=== PATIENT | female | born 1965 | race Caucasian/White ===

== ENCOUNTER → 2021-10-29 | Outpatient (CLI) | payer BC | LOC: KOH-I 14:33 | DX: M79.671 Pain in right foot (principal); M25.774 Osteophyte, right foot | CPT/HCPCS: 73630 ==

== ENCOUNTER → 2021-12-01 | Outpatient (CLI) | payer BC | LOC: KOH-I 08:48 | DX: S92.331D Displaced fracture of third metatarsal bone, right foot, subsequent encounter for fracture with routine healing (principal); X58.XXXD Exposure to other specified factors, subsequent encounter | CPT/HCPCS: 73630 ==

== ENCOUNTER → 2021-12-15 | Outpatient (CLI) | payer BC | LOC: KOH-I 15:33 | DX: S92.331A Displaced fracture of third metatarsal bone, right foot, initial encounter for closed fracture (principal) | CPT/HCPCS: 73630 ==

== ENCOUNTER → 2022-01-04 | Outpatient (CLI) | payer BC | LOC: KOH-I 08:28 | DX: S92.331A Displaced fracture of third metatarsal bone, right foot, initial encounter for closed fracture (principal); X58.XXXA Exposure to other specified factors, initial encounter | CPT/HCPCS: 73630 ==

== ENCOUNTER → 2022-02-08 | Outpatient (CLI) | payer BC | LOC: KOH-I 12:55 | DX: S92.331D Displaced fracture of third metatarsal bone, right foot, subsequent encounter for fracture with routine healing (principal) | CPT/HCPCS: 73630 ==